=== PATIENT | male | born 1960 | race Caucasian/White ===

== ENCOUNTER 2019-04-23 09:21 | Emergency (ER) | payer OTHER, SELFPAY ==
[2019-04-23 09:29] VITALS: PULSE 87; RESP 18; O2SAT 97; BMI 32.5
--- NOTE | 2019-04-23 09:33 | DI.RAD.S_ITS ---
PROCEDURE: XR CHEST 2V INDICATIONS: shortness of breath TECHNIQUE: 2 views of the chest were acquired. COMPARISON: [facility], , CHEST 2 VIEW, 10/15/2015, 11:22. FINDINGS: Surgical changes and devices: None. Lungs and pleura: Lungs are clear. No pleural effusions or pneumothorax. Mediastinum: Mediastinal contours are normal. Heart size is normal. Bones and chest wall: No suspicious bony abnormalities. Soft tissues appear unremarkable. IMPRESSION: Normal for age, source of current shortness of breath symptoms is not seen. Dictated by: Thien Gipson M.D. on 04/23/2019 at 9:59 Approved by: Thien Gipson M.D. on 04/23/2019 at 10:02
[2019-04-23 10:19] VITALS: PULSE 82; RESP 16; O2SAT 97
[2019-04-23 10:27] LABS: Add Manual Diff / Slide Review NO; Basophils Absolute Auto 100 /uL (0-100); Basophils Percent Auto 1.1 % (0-2); Eosinophils Absolute Auto 100 /uL (0-450); Eosinophils Percent Auto 2.6 % (2-4); Hematocrit 43.1 % (41-53); Hemoglobin 14.3 g/dL (13.5-17.5); Lymphocytes Absolute Auto 1200 /uL (1100-4500); Lymphocytes Percent Auto 26.9 % (25-40); Mean Corpuscular HGB Conc 33.2 % (30-36); Mean Corpuscular Hemoglobin 30.1 PG (26-34); Mean Corpuscular Volume 90.6 fL (80-100); Monocytes Absolute Auto 700 /uL (0-900); Monocytes Percent Auto 15.7 % (3-14); Neutrophils Absolute Auto 2400 /uL (1500-7000); Neutrophils Percent Auto 53.7 % (50-75); Platelet Count 225 X10^3/uL (150-400); Red Blood Cell Count 4.75 X10^6/uL (4.5-5.9); Red Cell Distribution Width 13.8 % (11.6-14.8); White Blood Cell Count 4.5 X10^3/uL (4.5-11.0)
[2019-04-23] MEDS: ALBUTEROL/IPRATROPIUM 3 ML AMPUL INH (10:32)
[2019-04-23 10:36] LABS: Alanine Aminotransferase 28 IU/L (21-72); Albumin 4.2 g/dL (3.5-5.0); Albumin Globulin Ratio 1.4 (1.0-2.8); Alkaline Phosphatase 105 U/L (38-126); Aspartate Aminotransferase 26 IU/L (17-59); BUN Creatinine Ratio 24.3 (6-22); Bilirubin Total 0.7 mg/dL (0.2-1.3); Blood Urea Nitrogen 17 mg/dL (9-20); Carbon Dioxide 30 mmol/L (22-32); Chloride 103 mmol/L (98-107); Estimated Glomerular Filt Rate > 60.0 mL/min (>60); Globulin 3.1 g/dL (1.7-4.1); Glucose 90 mg/dL (70-100); HEMOLYSIS < 15 (0-50); Potassium 4.2 mmol/L (3.4-5.1); Sodium 141 mmol/L (137-145); Total Protein 7.3 g/dL (6.3-8.2)
[2019-04-23 10:37] LABS: Lactate (Lactic Acid) 0.9 mmol/L (0.7-2.1)
--- NOTE | 2019-04-23 11:59 | DI.CT.S_ITS ---
PROCEDURE: CT CHEST W CON INDICATIONS: progressive cough, hemoptysis TECHNIQUE: After the administration of intravenous contrast, 5 mm thick sections acquired from the pulmonary apices to the posterior costophrenic angles. 1 mm axial lung, 5 mm thick coronal and sagittal reformats and 7 mm axial MIP were acquired. For radiation dose reduction, the following was used: automated exposure control, adjustment of mA and/or kV according to patient size. COMPARISON: [facility], CR, XR CHEST 2V, 04/23/2019, 9:31. [facility], CR, CHEST 2 VIEW, 10/15/2015, 11:22. FINDINGS: Image quality: Excellent. Lungs and pleura: No acute air space opacities that would suggest presence of pulmonary hemorrhage within the lung parenchyma. Incidental load is made of a 4 mm nodule at the medial border of the right lower lobe abutting the pleural surface (seen on series 3 image 237). No pleural effusions or pneumothorax. Central and peripheral airways are patent and normal in caliber. Mediastinum: Heart size is normal. No pericardial effusion. No mediastinal or hilar adenopathy by size criteria. Thoracic aorta and central pulmonary arteries are normal in size. Esophagus is normal in caliber. No hiatal hernia. Bones and chest wall: No suspicious bony lesions. No vertebral body compression fractures. No axillary or supraclavicular adenopathy by size criteria. Thyroid gland appears normal where well seen. Abdomen: Visualized upper abdominal solid organs appear normal. Upper abdominal bowel loops are normal in caliber. IMPRESSION: Inlet and appearing mass within the lung parenchyma with adjacent airspace disease suggestive of pulmonary hemorrhage is not seen. Note is made of a slight degree of prominence of the peribronchial soft tissue thickness, consistent with mild chronic bronchitis or acute bronchitis superimposed. The 4 mm nodule at the medial right lower lobe abuts the pleural surface, and no comparison CT scan is available for review that would include this area. If alternative sources of CT scanning through the abdomen or lower chest is available they should be obtained for review. If not, a followup noncontrast low dose CT scan for pulmonary nodule enlargement would be recommended in 6 months. Dictated by: Thien Gipson M.D. on 04/23/2019 at 13:02 Approved by: Thien Gipson M.D. on 04/23/2019 at 13:05
--- NOTE | 2019-04-23 12:01 | ED.URI ---
HPI - URI/Sore Throat General Chief Complaint: Upper Respiratory Symptoms Stated Complaint: PERSISTANT COUGH/BLOODY FLEM Time Seen by Provider: 04/23/19 10:14 Source: patient Mode of arrival: ambulatory Limitations: no limitations History of Present Illness HPI Narrative: Patient comes emergency department complaining of cough and hemoptysis. Patient states he has ongoing respiratory issues which have been going on for some months, and he has been seen by a primary care physician for this. He has been worked up with chest x-ray and pulmonary function testing. The patient is a long-time smoker, and states that his x-ray did show some hyperinflation of the lungs, but he was not given a direct diagnosis of COPD. 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, but occasionally goes to [facility]. He states that his symptoms started with cold-like symptoms after visiting [facility] several months ago, but that he has not had complete improvement since. He denies any weight loss. He denies anyone else on showed being sick with anything other than seemingly cold symptoms. He denies any fevers. He does get night sweats he states. Patient states he became concerned because he has began to cough up blood. He states that the amount is relatively small, perhaps a tsp at a time, but that this has been becoming more frequent. Patient does not know of any history of TB exposure. Related Data Home Medications Medication Instructions Recorded Confirmed Coricidin HBP 1 tab PO Q6H 04/23/19 04/23/19 albuterol sulfate 2 puff INHALATION Q4-6H PRN 04/23/19 04/23/19 dextromethorphan-benzocaine 1 ea PO PRN PRN 04/23/19 04/23/19 [Cepacol Sorethroat-Cough] lisinopril-hydrochlorothiazide 1 tab PO DAILY 04/23/19 04/23/19 Allergies Allergy/AdvReac Type Severity Reaction Status Date / Time No Known Drug Allergies Allergy Verified 04/23/19 09:33 Review of Systems Constitutional Denies chills, Denies fever(s), Denies lethargy and Denies weakness Eyes Denies change in vision, Denies eye discharge, Denies irritation and Denies loss of vision ENT Ears, Nose, Mouth, and Throat: Denies change in voice, Denies neck pain and Denies sore throat Cardiovascular Denies chest pain, Denies irregular heart rhythm, Denies lightheadedness, Denies palpitations, Denies dyspnea, Denies dyspnea on exertion and Denies orthopnea Respiratory Reports cough (Hemoptysis), Denies dyspnea, Denies dyspnea on exertion and Denies wheezing Gastrointestinal Gastrointestinal: Denies abdominal pain, Denies change in bowel habits, Denies diarrhea, Denies nausea and Denies vomiting Genitourinary Denies hematuria, Denies flank pain, Denies urinary incontinence and Denies urinary urgency Musculoskeletal Denies neck pain Integumentary/Breasts Denies pruritus, Denies erythema, Denies rash and Denies wounds Neurologic Denies confusion, Denies loss of vision and Denies weakness Psychiatric Denies anxiety, Denies confusion, Denies depression, Denies homicidal ideation and Denies suicidal ideation Endocrine Denies palpitations Hematologic/Lymphatic Denies easy bruising Allergic/Immunologic Denies wheezing [facility] Medical History COPD (chronic obstructive pulmonary disease) (Acute) Surgical History Status post appendectomy Status post hernia repair Social History Smoking Status: Current every day smoker Social History Smoking Status: Current every day smoker Exam Initial Vital Signs Initial Vital Signs: Vital Signs Pulse Rate 87 04/23/19 09:29 Respiratory Rate 18 04/23/19 09:29 Pulse Oximetry 97 04/23/19 09:29 Const General: cooperative and well developed Nutritional Appearance: well nourished Orientation: alert, awake, oriented x3 and not confused [facility] Head: normocephalic and atraumatic Ears: external ears normal Nose: external nose normal and No nasal discharge Face and sinus: face symmetric and No dry mucous membranes Mouth: oral mucosae normal and moist mucous membranes Teeth and gingiva: dentition normal Throat: tonsils normal and uvula midline Eyes General: appearance normal, both eyes and all related structures Eyelids: eyelids normal Conjunctivae: conjunctivae normal Sclera: sclerae normal EOM: EOM intact bilaterally Neck Neck: normal visual inspection, trachea midline, No lymphadenopathy, No midline deformity and No JVD Lymphatic: No lymphedema Chest Chest: normal inspection of the chest Resp Effort & Inspection: normal respiratory effort, able to speak in complete sentences, no respiratory distress and no use of accessory muscles Auscultation: clear to auscultation bilaterally, no rales, no rhonchi and no wheezes Cardio Rate: regular rate Rhythm: regular rhythm Heart Sounds: no click, no gallops, no murmurs and no rubs Pulses: normal peripheral pulses GI Inspection: non-distended Palpation: soft, no hepatosplenomegaly, No guarding, No pulsatile mass and No tender Back/Spine/Pelvis Back: No CVA tenderness Cervical Spine: cervical ROM normal and No pain with cervical ROM Thoracic/Lumbar Spine: thoracic and lumbar spine normal to inspection Skin General: no rashes or lesions noted, No jaundice and No petechiae Neuro General: alert, oriented x3, gait normal and no focal motor deficits Speech: speech normal Extrem General: full ROM, no clubbing, cyanosis or edema, no pedal edema and no calf tenderness Psych Appearance: well kempt Mental Status: mental status grossly normal Attitude: cooperative Thought Content: normal and suicidality Judgment: judgment good Course Course Narrative: The patient is worked up with chest x-ray, which was unremarkable, followed by labs and CT of the thorax, which was also unremarkable, other than for a small pulmonary nodule. I discussed with the patient that we have not found an emergent condition today causing his symptoms. I have informed him of his pulmonary nodule, which he will need to have rechecked in the next 6 months. 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 Patient states that he is going to go home to [place] to recover before going back out on the ship. We have discussed home management of symptoms, as well as the usual indications for return to the emergency department. Orders Ordered: Discontinued Medications Albuterol/Ipratropium (Duoneb) 3 ml INH NOW ONE Stop: 04/23/19 10:29 Last Admin: 04/23/19 10:32 Dose: 3 ml Prednisone (Deltasone) 60 mg PO NOW ONE Stop: 04/23/19 11:59 Last Admin: 04/23/19 12:08 Dose: 60 mg Vital Signs - 8 hr 04/23/19 09:29 04/23/19 10:19 Pulse Rate 87 82 Respiratory Rate 18 16 Pulse Oximetry 97 97 MDM - URI/Sore Throat Medical Records Attestation: I reviewed the patient's medical records. Lab Data Attestation: I reviewed the patient's lab results. Result diagrams: 04/23/19 10:15 04/23/19 10:15 Lab Results 04/23/19 04/23/19 04/23/19 Range/Units 10:15 10:15 10:15 WBC 4.5 (4.5-11.0) X10^3/uL RBC 4.75 (4.5-5.9) X10^6/uL Hgb 14.3 (13.5-17.5) g/dL Hct 43.1 (41-53) % MCV 90.6 (80-100) fL MCH 30.1 (26-34) PG MCHC 33.2 (30-36) % RDW 13.8 (11.6-14.8) % Plt Count 225 (150-400) X10^3/uL Neut % (Auto) 53.7 (50-75) % Lymph % (Auto) 26.9 (25-40) % [place] % (Auto) 15.7 H (3-14) % Eos % (Auto) 2.6 (2-4) % Baso % (Auto) 1.1 (0-2) % Neut # (Auto) 2400 (9206-0906) /uL Lymph # (Auto) 1200 (8292-7738) /uL [place] # (Auto) 700 (0-900) /uL Eos # (Auto) 100 (0-450) /uL Baso # (Auto) 100 (0-100) /uL Sodium 141 (137-145) mmol/L Potassium 4.2 (3.4-5.1) mmol/L Chloride 103 (98-107) mmol/L Carbon Dioxide 30 (22-32) mmol/L BUN 17 (9-20) mg/dL Creatinine 0.70 (0.66-1.25) mg/dL Estimated GFR > 60.0 (>60) mL/min BUN/Creatinine Ratio 24.3 H (6-22) Glucose 90 (70-100) mg/dL Lactate 0.9 (0.7-2.1) mmol/L Calcium 9.0 (8.4-10.2) mg/dL Total Bilirubin 0.7 (0.2-1.3) mg/dL AST 26 (17-59) IU/L ALT 28 (21-72) IU/L Alkaline Phosphatase 105 (38-126) U/L Total Protein 7.3 (6.3-8.2) g/dL Albumin 4.2 (3.5-5.0) g/dL Globulin 3.1 (1.7-4.1) g/dL Albumin/Globulin Ratio 1.4 (1.0-2.8) Imaging Data Chest x-ray: Radiologist's impression: PROCEDURE: XR CHEST 2V INDICATIONS: shortness of breath TECHNIQUE: 2 views of the chest were acquired. COMPARISON: [facility], CHEST 2 VIEW, 10/15/2015, 11:22. FINDINGS: Surgical changes and devices: None. Lungs and pleura: Lungs are clear. No pleural effusions or pneumothorax. Mediastinum: Mediastinal contours are normal. Heart size is normal. Bones and chest wall: No suspicious bony abnormalities. Soft tissues appear unremarkable. IMPRESSION: Normal for age, source of current shortness of breath symptoms is not seen. Dictated by: Thien Gipson M.D. on 04/23/2019 at 9:59 Approved by: Thien Gipson M.D. on 04/23/2019 at 10:02 CT scan - chest: Radiologist's impression: PROCEDURE: CT CHEST W CON INDICATIONS: progressive cough, hemoptysis TECHNIQUE: After the administration of intravenous contrast, 5 mm thick sections acquired from the pulmonary apices to the posterior costophrenic angles. 1 mm axial lung, 5 mm thick coronal and sagittal reformats and 7 mm axial MIP were acquired. For radiation dose reduction, the following was used: automated exposure control, adjustment of mA and/or kV according to patient size. COMPARISON: [facility], XR CHEST 2V, 04/23/2019, 9:31. [facility], CHEST 2 VIEW, 10/15/2015, 11:22. FINDINGS: Image quality: Excellent. Lungs and pleura: No acute air space opacities that would suggest presence of pulmonary hemorrhage within the lung parenchyma. Incidental load is made of a 4 mm nodule at the medial border of the right lower lobe abutting the pleural surface (seen on series 3 image 237). No pleural effusions or pneumothorax. Central and peripheral airways are patent and normal in caliber. Mediastinum: Heart size is normal. No pericardial effusion. No mediastinal or hilar adenopathy by size criteria. Thoracic aorta and central pulmonary arteries are normal in size. Esophagus is normal in caliber. No hiatal hernia. Bones and chest wall: No suspicious bony lesions. No vertebral body compression fractures. No axillary or supraclavicular adenopathy by size criteria. Thyroid gland appears normal where well seen. Abdomen: Visualized upper abdominal solid organs appear normal. Upper abdominal bowel loops are normal in caliber. IMPRESSION: Inlet and appearing mass within the lung parenchyma with adjacent airspace disease suggestive of pulmonary hemorrhage is not seen. Note is made of a slight degree of prominence of the peribronchial soft tissue thickness, consistent with mild chronic bronchitis or acute bronchitis superimposed. The 4 mm nodule at the medial right lower lobe abuts the pleural surface, and no comparison CT scan is available for review that would include this area. If alternative sources of CT scanning through the abdomen or lower chest is available they should be obtained for review. If not, a followup noncontrast low dose CT scan for pulmonary nodule enlargement would be recommended in 6 months. Dictated by: Thien Gipson M.D. on 04/23/2019 at 13:02 Approved by: Thien Gipson M.D. on 04/23/2019 at 13:05 Discharge Plan Departure Patient Disposition: Home Clinical Impression: Cough with hemoptysis Discharge Date/Time: 04/23/19 15:00 Interventions: ED Discharge Assessment Last Done: 04/23/19 15:03 Instructions: DI for Cough -- Adult, DI for Hemoptysis Activity Restrictions/Additional Instructions: Your imaging studies do not show a serious or definite cause of your cough or bleeding. There is no evidence of cancer or infection at this time. Please continue to take the cough medicine and your inhaler, as needed. Please work with your doctor on smoking cessation. Prescriptions: No Action lisinopril-hydrochlorothiazide 20-12.5 mg tablet 1 tab PO DAILY RF: 0 albuterol sulfate 90 mcg/actuation Hfa Aerosol Inhaler 2 puff INHALATION Q4-6H PRN (Reason: Shortness Of Breath) RF: 0 Cepacol Sorethroat-Cough 5-7.5 mg Lozenge 1 ea PO PRN PRN (Reason: Cough) RF: 0 Coricidin HBP 1 tab PO Q6H RF: 0
--- NOTE | 2019-04-23 12:04 | ED_ITS ---
HPI - URI/Sore Throat General Chief Complaint: Upper Respiratory Symptoms Stated Complaint: PERSISTANT COUGH/BLOODY FLEM Time Seen by Provider: 04/23/19 10:14 Source: patient Mode of arrival: ambulatory Limitations: no limitations History of Present Illness HPI Narrative: Patient comes emergency department complaining of cough and hemoptysis. Patient states he has ongoing respiratory issues which have been going on for some months, and he has been seen by a primary care physician for this. He has been worked up with chest x-ray and pulmonary function testing. The patient is a long-time smoker, and states that his x-ray did show some hyperinflation of the lungs, but he was not given a direct diagnosis of COPD. 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 He states that his symptoms started with cold-like symptoms after visiting [place] [place] several months ago, but that he has not had complete improvement since. He denies any weight loss. He denies anyone else on showed being sick with anything other than seemingly cold symptoms. He denies any fevers. He does get night sweats he states. Patient states he became concerned because he has began to cough up blood. He states that the amount is relatively small, perhaps a tsp at a time, but that this has been becoming more frequent. Patient does not know of any history of TB exposure. Related Data Home Medications Medication Instructions Recorded Confirmed Coricidin HBP 1 tab PO Q6H 04/23/19 04/23/19 albuterol sulfate 2 puff INHALATION Q4-6H PRN 04/23/19 04/23/19 dextromethorphan-benzocaine 1 ea PO PRN PRN 04/23/19 04/23/19 [Cepacol Sorethroat-Cough] lisinopril-hydrochlorothiazide 1 tab PO DAILY 04/23/19 04/23/19 Allergies Allergy/AdvReac Type Severity Reaction Status Date / Time No Known Drug Allergies Allergy Verified 04/23/19 09:33 Review of Systems Constitutional Denies chills, Denies fever(s), Denies lethargy and Denies weakness Eyes Denies change in vision, Denies eye discharge, Denies irritation and Denies loss of vision ENT Ears, Nose, Mouth, and Throat: Denies change in voice, Denies neck pain and Denies sore throat Cardiovascular Denies chest pain, Denies irregular heart rhythm, Denies lightheadedness, Denies palpitations, Denies dyspnea, Denies dyspnea on exertion and Denies orthopnea Respiratory Reports cough (Hemoptysis), Denies dyspnea, Denies dyspnea on exertion and Denies wheezing Gastrointestinal Gastrointestinal: Denies abdominal pain, Denies change in bowel habits, Denies d iarrhea, Denies nausea and Denies vomiting Genitourinary Denies hematuria, Denies flank pain, Denies urinary incontinence and Denies urinary urgency Musculoskeletal Denies neck pain Integumentary/Breasts Denies pruritus, Denies erythema, Denies rash and Denies wounds Neurologic Denies confusion, Denies loss of vision and Denies weakness Psychiatric Denies anxiety, Denies confusion, Denies depression, Denies homicidal ideation and Denies suicidal ideation Endocrine Denies palpitations Hematologic/Lymphatic Denies easy bruising Allergic/Immunologic Denies wheezing [facility] Medical History COPD (chronic obstructive pulmonary disease) (Acute) Surgical History Status post appendectomy Status post hernia repair Social History Smoking Status: Current every day smoker Social History Smoking Status: Current every day smoker Exam Initial Vital Signs Initial Vital Signs: Vital Signs Pulse Rate 87 04/23/19 09:29 Respiratory Rate 18 04/23/19 09:29 Pulse Oximetry 97 04/23/19 09:29 Const General: cooperative and well developed Nutritional Appearance: well nourished Orientation: alert, awake, oriented x3 and not confused [facility] Head: normocephalic and atraumatic Ears: external ears normal Nose: external nose normal and No nasal discharge Face and sinus: face symmetric and No dry mucous membranes Mouth: oral mucosae normal and moist mucous membranes Teeth and gingiva: dentition normal Throat: tonsils normal and uvula midline Eyes General: appearance normal, both eyes and all related structures Eyelids: eyelids normal Conjunctivae: conjunctivae normal Sclera: sclerae normal EOM: EOM intact bilaterally Neck Neck: normal visual inspection, trachea midline, No lymphadenopathy, No midline deformity and No JVD Lymphatic: No lymphedema Chest Chest: normal inspection of the chest Resp Effort & Inspection: normal respiratory effort, able to speak in complete sentences, no respiratory distress and no use of accessory muscles Auscultation: clear to auscultation bilaterally, no rales, no rhonchi and no wheezes Cardio Rate: regular rate Rhythm: regular rhythm Heart Sounds: no click, no gallops, no murmurs and no rubs Pulses: normal peripheral pulses GI Inspection: non-distended Palpation: soft, no hepatosplenomegaly, No guarding, No pulsatile mass and No tender Back/Spine/Pelvis Back: No CVA tenderness Cervical Spine: cervical ROM normal and No pain with cervical ROM Thoracic/Lumbar Spine: thoracic and lumbar spine normal to inspection Skin General: no rashes or lesions noted, No jaundice and No petechiae Neuro General: alert, oriented x3, gait normal and no focal motor deficits Speech: speech normal Extrem General: full ROM, no clubbing, cyanosis or edema, no pedal edema and no calf tenderness Psych Appearance: well kempt Mental Status: mental status grossly normal Attitude: cooperative Thought Content: normal and suicidality Judgment: judgment good Course Course Narrative: The patient is worked up with chest x-ray, which was unremarkable, followed by labs and CT of the thorax, which was also unremarkable, other than for a small pulmonary nodule. I discussed with the patient that we have not found an emergent condition today causing his symptoms. I have informed him of his pulmonary nodule, which he will need to have rechecked in the next 6 months. 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 Patient states that he is going to go home to [place] to recover before going back out on the ship. We have discussed home management of symptoms, as well as the usual indications for return to the emergency department. Orders Ordered: Discontinued Medications Albuterol/Ipratropium (Duoneb) 3 ml INH NOW ONE Stop: 04/23/19 10:29 Last Admin: 04/23/19 10:32 Dose: 3 ml Prednisone (Deltasone) 60 mg PO NOW ONE Stop: 04/23/19 11:59 Last Admin: 04/23/19 12:08 Dose: 60 mg Vital Signs - 8 hr 04/23/19 09:29 04/23/19 10:19 Pulse Rate 87 82 Respiratory Rate 18 16 Pulse Oximetry 97 97 MDM - URI/Sore Throat Medical Records Attestation: I reviewed the patient's medical records. Lab Data Attestation: I reviewed the patient's lab results. Result diagrams: 04/23/19 10:15 04/23/19 10:15 Lab Results 04/23/19 04/23/19 04/23/19 Range/Units 10:15 10:15 10:15 WBC 4.5 (4.5-11.0) X10^3/uL RBC 4.75 (4.5-5.9) X10^6/uL Hgb 14.3 (13.5-17.5) g/dL Hct 43.1 (41-53) % MCV 90.6 (80-100) fL MCH 30.1 (26-34) PG MCHC 33.2 (30-36) % RDW 13.8 (11.6-14.8) % Plt Count 225 (150-400) X10^3/uL Neut % (Auto) 53.7 (50-75) % Lymph % (Auto) 26.9 (25-40) % Laurel % (Auto) 15.7 H (3-14) % Eos % (Auto) 2.6 (2-4) % Baso % (Auto) 1.1 (0-2) % Neut # (Auto) 2400 (5323-3448) /uL Lymph # (Auto) 1200 (8004-9668) /uL Laurel # (Auto) 700 (0-900) /uL Eos # (Auto) 100 (0-450) /uL Baso # (Auto) 100 (0-100) /uL Sodium 141 (137-145) mmol/L Potassium 4.2 (3.4-5.1) mmol/L Chloride 103 (98-107) mmol/L Carbon Dioxide 30 (22-32) mmol/L BUN 17 (9-20) mg/dL Creatinine 0.70 (0.66-1.25) mg/dL Estimated GFR > 60.0 (>60) mL/min BUN/Creatinine Ratio 24.3 H (6-22) Glucose 90 (70-100) mg/dL Lactate 0.9 (0.7-2.1) mmol/L Calcium 9.0 (8.4-10.2) mg/dL Total Bilirubin 0.7 (0.2-1.3) mg/dL AST 26 (17-59) IU/L ALT 28 (21-72) IU/L Alkaline Phosphatase 105 (38-126) U/L Total Protein 7.3 (6.3-8.2) g/dL Albumin 4.2 (3.5-5.0) g/dL Globulin 3.1 (1.7-4.1) g/dL Albumin/Globulin Ratio 1.4 (1.0-2.8) Imaging Data Chest x-ray: Radiologist's impression: PROCEDURE: XR CHEST 2V INDICATIONS: shortness of breath TECHNIQUE: 2 views of the chest were acquired. COMPARISON: [facility], CHEST 2 VIEW, 10/15/2015, 11:22. FINDINGS: Surgical changes and devices: None. Lungs and pleura: Lungs are clear. No pleural effusions or pneumothorax. Mediastinum: Mediastinal contours are normal. Heart size is normal. Bones and chest wall: No suspicious bony abnormalities. Soft tissues appear unremarkable. IMPRESSION: Normal for age, source of current shortness of breath symptoms is not seen. Dictated by: Thien Gipson M.D. on 04/23/2019 at 9:59 Approved by: Thien Gipson M.D. on 04/23/2019 at 10:02 CT scan - chest: Radiologist's impression: PROCEDURE: CT CHEST W CON INDICATIONS: progressive cough, hemoptysis TECHNIQUE: After the administration of intravenous contrast, 5 mm thick sections acquired from the pulmonary apices to the posterior costophrenic angles. 1 mm axial lung, 5 mm thick coronal and sagittal reformats and 7 mm axial MIP were acquired. For radiation dose reduction, the following was used: automated exposure control, adjustment of mA and/or kV according to patient size. COMPARISON: [facility], XR CHEST 2V, 04/23/2019, 9:31. [facility], CHEST 2 VIEW, 10/15/2015, 11:22. FINDINGS: Image quality: Excellent. Lungs and pleura: No acute air space opacities that would suggest presence of pulmonary hemorrhage within the lung parenchyma. Incidental load is made of a 4 mm nodule at the medial border of the right lower lobe abutting the pleural surface (seen on series 3 image 237). No pleural effusions or pneumothorax. Central and peripheral airways are patent and normal in caliber. Mediastinum: Heart size is normal. No pericardial effusion. No mediastinal or hilar adenopathy by size criteria. Thoracic aorta and central pulmonary arteries are normal in size. Esophagus is normal in caliber. No hiatal hernia. Bones and chest wall: No suspicious bony lesions. No vertebral body compression fractures. No axillary or supraclavicular adenopathy by size criteria. Thyroid gland appears normal where well seen. Abdomen: Visualized upper abdominal solid organs appear normal. Upper abdominal bowel loops are normal in caliber. IMPRESSION: Inlet and appearing mass within the lung parenchyma with adjacent airspace disease suggestive of pulmonary hemorrhage is not seen. Note is made of a slight degree of prominence of the peribronchial soft tissue thickness, consistent with mild chronic bronchitis or acute bronchitis superimposed. The 4 mm nodule at the medial right lower lobe abuts the pleural surface, and no comparison CT scan is available for review that would include this area. If alternative sources of CT scanning through the abdomen or lower chest is available they should be obtained for review. If not, a followup noncontrast low dose CT scan for pulmonary nodule enlargement would be recommended in 6 months. Dictated by: Thien Gipson M.D. on 04/23/2019 at 13:02 Approved by: Thien Gipson M.D. on 04/23/2019 at 13:05 Discharge Plan Departure Patient Disposition: Home Clinical Impression: Cough with hemoptysis Discharge Date/Time: 04/23/19 15:00 Interventions: ED Discharge Assessment Last Done: 04/23/19 15:03 Instructions: DI for Cough -- Adult, DI for Hemoptysis Activity Restrictions/Additional Instructions: Your imaging studies do not show a serious or definite cause of your cough or bleeding. There is no evidence of cancer or infection at this time. Please co ntinue to take the cough medicine and your inhaler, as needed. Please work with your doctor on smoking cessation. Prescriptions: No Action lisinopril-hydrochlorothiazide 20-12.5 mg tablet 1 tab PO DAILY RF: 0 albuterol sulfate 90 mcg/actuation Hfa Aerosol Inhaler 2 puff INHALATION Q4-6H PRN (Reason: Shortness Of Breath) RF: 0 Cepacol Sorethroat-Cough 5-7.5 mg Lozenge 1 ea PO PRN PRN (Reason: Cough) RF: 0 Coricidin HBP 1 tab PO Q6H RF: 0
[2019-04-23] MEDS: predniSONE 20 MG TABLET 60 MG PO (12:08)
[2019-04-23 13:29] VITALS: BP 139/88; PULSE 78; RESP 18; TEMP 36.7; O2SAT 98
[2019-04-23 14:30] VITALS: BP 149/87; PULSE 82; RESP 17; O2SAT 98
[2019-04-23 15:03] VITALS: BP 140/87; PULSE 84; RESP 18; TEMP 36.9; O2SAT 97
== END 2019-04-23 15:00 | disposition home or self-care (01) ==
PROVIDERS: Emergency Provider Emergency Medicine
DX: R04.2 Hemoptysis (principal)
CPT/HCPCS: 36415; 71046; 71260; 80053; 83605; 85025; 93005; 93010; 94150; 94640; 99283; 99285; Q9967